=== PATIENT | female | born 1980 ===

== ENCOUNTER → 2019-12-11 15:10 | Outpatient (BNVA) | payer OTHER, SELFPAY | PROVIDERS: PCP Internal Medicine; Visit Provider Anesthesiology | DX: M46.90 Unspecified inflammatory spondylopathy, site unspecified (principal); M47.816 Spondylosis without myelopathy or radiculopathy, lumbar region; G89.4 Chronic pain syndrome; Z79.891 Long term (current) use of opiate analgesic | CPT/HCPCS: 99214 ==

== ENCOUNTER 2019-12-12 20:03 | Emergency (ER) | payer OTHER, SELFPAY ==
[2019-12-12 20:41] VITALS: BP 125/86; PULSE 84; RESP 16; TEMP 36.4; O2SAT 100; BMI 31.8
--- NOTE | 2019-12-12 20:41 | XR_ITS ---
EXAMINATION: XR KNEE, LEFT CLINICAL INFORMATION: Left knee pain COMPARISON: None TECHNIQUE: Four views of the left knee. FINDINGS: The tricompartment joint space is maintained. No bony erosive changes seen. No visible acute fracture or dislocation seen. There is no suprapatellar joint effusion. XR/XR knee LT 4V IMPRESSION: Unremarkable left knee exam.
--- NOTE | 2019-12-12 21:23 | ED_ITS ---
HPI - Extremity Injury (Lower) General Chief Complaint: Extremity Injury, Lower Stated Complaint: KNEE PAIN Time Seen by Provider: 12/12/19 20:41 Source: patient Mode of arrival: ambulatory Limitations: no limitations History of Present Illness HPI Narrative: left knee pain past 2 days unsure if she injured or not but has a aching/burning like pain in the knee. Exacerbating factors: nothing Context: direct blow Related Data Home Medications Medication Instructions Recorded Confirmed atorvastatin 40 mg tablet 40 mg PO DAILY 12/11/19 12/11/19 fenofibrate 54 mg tablet 54 mg PO DAILY 12/11/19 12/11/19 ferrous sulfate 325 mg (65 mg 325 mg PO DAILY 12/11/19 12/11/19 iron) tablet hydromorphone 2 mg tablet 2 mg PO BID PRN 12/11/19 12/11/19 ibuprofen 800 mg tablet 800 mg PO TID 12/11/19 12/11/19 Previous Rx's Medication Instructions Recorded prednisone 20 mg tablet 20 mg PO DAILY 9 Days #18 tab 12/12/19 Allergies Allergy/AdvReac Type Severity Reaction Status Date / Time No Known Allergies Allergy Unverified 11/06/19 16:37 Review of Systems Review of Systems: Constitutional: No Weight loss, No Fever, No Chills, No Night Sweats, No Fatigue, No Malaise ENT/Mouth: No Hearing loss, No Ear Pain, No Nasal Congestion, No Sinus Pain, No Hoarseness, No sore throat, No Rhinorrhea, No Swallowing Difficulty Eyes: No Eye Pain, No Swelling, No Redness, No Foreign Body, No Discharge, No Vision Changes Cardiovascular: No Chest Pain, No SOB, No Dyspnea on Exertion, No Orthopnea, No Edema, No Palpitations Respiratory: No Cough, No Sputum, No Wheezing, No Smoke Exposure Genitourinary: no irregular bleeding Musculoskeletal: As noted Skin: No Skin Lesions, No rash Neuro: No Weakness, No Numbness, No Paresthesias, No Loss of Consciousness, No Dizziness, No Headache Psych: No Anxiety/Panic Heme/Lymph: No Bruising, No Bleeding,No Lymphadenopathy Endocrine: No Polyuria, No Polydipsia, No Temperature Intolerance Yes all other systems are reviewed and are negative [facility] Past Medical History Attestation statement: The following information was validated with the patient. 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 Spondylosis without myelopathy or radiculopathy, lumbar region Unspecified inflammatory spondylopathy, site unspecified Social History Social History Smoking Status: Never smoker Physical Exam Vital Signs: Vital Signs: Vital Signs Temp Pulse Resp BP Pulse Ox 12/12/19 20:41 97.6 F 84 16 125/86 100 Body Mass Index 31.8 Reviewed Const: General: cooperative and healthy appearing; No acute distress or intoxicated appearing Nutritional Appearance: average body habitus Orientation/consciousness: patient oriented x3 Chest: Chest palpation & inspection: normal inspection of the chest Resp: Effort & Inspection: normal respiratory effort Cardio: Jugular venous distension: no JVD : General: Yes no CVA tenderness Back/Spine/Pelvis: Back: no CVA tenderness Skin: General skin exam: no rashes or lesions noted Neuro: General: patient oriented x3 Extrem: Other: Negative Homans. No obvious erythema/swelling. No effusion. Squeeze test within normal limits. Negative drawer test. General: Yes normal to inspection MDM - Extremity Injury (Lower) Imaging Data Knee xray: Radiologist's impression: Rosanne Morrell 39 F 1980 [place] [address] XRay Report Signed Patient: Rosanne Morrell MMR#: [id number] : 1980Acct:[id number] Age/Sex: 39 / FADM Date: 12/12/19 Loc: HO.ED Attending Dr: Ordering Physician: Ralph Adan NP Date of Service: 12/12/19 Procedure(s): XR knee LT 4V Accession Number(s): [id number] cc: Ralph Adan NP~ EXAMINATION: XR KNEE, LEFT CLINICAL INFORMATION: Left knee pain COMPARISON: None TECHNIQUE: Four views of the left knee. FINDINGS: The tricompartment joint space is maintained. No bony erosive changes seen. No visible acute fracture or dislocation seen. There is no suprapatellar joint effusion. XR/XR knee LT 4V IMPRESSION: Unremarkable left knee exam. 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[place] [facility] [place] Discharge Clinical Impression: Acute knee pain Patient Disposition: Home, Self-Care Instructions: Knee Pain (ED), Arthralgia (ED) Prescriptions: No Action prednisone 20 mg tablet 20 mg PO DAILY 9 Days Qty: 18 RF: 0 hydromorphone 2 mg tablet 2 mg PO BID PRNRF: 0 ferrous sulfate 325 mg (65 mg iron) tablet 325 mg PO DAILY RF: 0 ibuprofen 800 mg tablet 800 mg PO TID RF: 0 atorvastatin 40 mg tablet 40 mg PO DAILY RF: 0 fenofibrate 54 mg tablet 54 mg PO DAILY RF: 0 Referrals: Jahaira Pitt MD [Physician] - 2 weeks Interventions: ED Discharge Assessment Last Done: 12/12/19 21:37 Discharge Date/Time: 12/12/19 21:41
== END 2019-12-12 21:41 | disposition home or self-care (01) ==
PROVIDERS: Emergency Provider Emergency Medicine; PCP Internal Medicine
DX: M25.562 Pain in left knee (principal); G89.4 Chronic pain syndrome; Z79.891 Long term (current) use of opiate analgesic
CPT/HCPCS: 73564; 99283

== ENCOUNTER → 2019-12-19 11:02 | Outpatient (BNVA) | payer OTHER, SELFPAY | PROVIDERS: PCP Internal Medicine; Referring Provider Internal Medicine; Visit Provider Physician Assistant | DX: M17.12 Unilateral primary osteoarthritis, left knee (principal) | CPT/HCPCS: 99212 ==

== ENCOUNTER → 2020-01-01 10:53 | Outpatient (BNVA) | payer OTHER, SELFPAY | PROVIDERS: PCP Internal Medicine; Visit Provider Anesthesiology | DX: G89.4 Chronic pain syndrome (principal); M46.90 Unspecified inflammatory spondylopathy, site unspecified; M47.816 Spondylosis without myelopathy or radiculopathy, lumbar region; Z79.891 Long term (current) use of opiate analgesic | CPT/HCPCS: 99212 ==

== ENCOUNTER → 2020-01-22 10:26 | Outpatient (BNVA) | payer OTHER, SELFPAY | PROVIDERS: PCP Internal Medicine; Referring Provider Internal Medicine; Visit Provider Anesthesiology | DX: M46.90 Unspecified inflammatory spondylopathy, site unspecified (principal); M48.16 Ankylosing hyperostosis [Forestier], lumbar region; G89.4 Chronic pain syndrome; Z79.891 Long term (current) use of opiate analgesic | CPT/HCPCS: 99212 ==

== ENCOUNTER 2020-02-06 12:46 | Day surgery (SDC) | payer OTHER, SELFPAY ==
[2020-01-30 20:50] VITALS: BMI 70.2
--- NOTE | 2020-02-05 10:15 | P.CONAN_ITS ---
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 Spondylosis without myelopathy or radiculopathy, lumbar region Unspecified inflammatory spondylopathy, site unspecified Family History Family History Father Diabetes Hypertension Stroke Mother Hypertension Surgical History Surgical History History of ankle surgery History of cholecystectomy History of sinus surgery History of tubal ligation Social History Social History Alcohol intake: never Smoking Status: Never smoker Use of substances other than those prescribed or required for medical reasons: No Advance Directives: No Advance Directives Information Provided: No Advance Directives on File: No Meds Allergies Allergy/AdvReac Type Severity Reaction Status Date / Time No Known Allergies Allergy Verified 02/03/20 07:21 Home Medications Medication Instructions Recorded Confirmed Type atorvastatin 40 mg tablet 40 mg PO DAILY 12/11/19 01/30/20 History fenofibrate 54 mg tablet 54 mg PO DAILY 12/11/19 01/30/20 History ferrous sulfate 325 mg (65 mg 325 mg PO DAILY 12/11/19 01/30/20 History iron) tablet ibuprofen 800 mg tablet 800 mg PO TID PRN 12/11/19 01/30/20 History Exam Exam Date and Time: February 05, 2020 1015 Height,Weight and Vital Signs: Height 5 ft 3 in Weight 180 kg Assessment and Plan Assessment Anesthesia Assessment: Chart Reviewed Documented by User: Lionel Toledo 02/06/20 13:34 PMFSH Past Medical History Medical History Arthritis Chronic pain syndrome Hypercholesteremia [facility] (current) use of opiate analgesic Spondylosis without myelopathy or radiculopathy, lumbar region Unspecified inflammatory spondylopathy, site unspecified Family History Family History Father Diabetes Hypertension Stroke Mother Hypertension Surgical History Surgical History History of ankle surgery History of cholecystectomy History of sinus surgery History of tubal ligation Social History Social History Alcohol intake: never Smoking Status: Never smoker Use of substances other than those prescribed or required for medical reasons: No Advance Directives: No Advance Directives Information Provided: No Advance Directives on File: No Meds Allergies Allergy/AdvReac Type Severity Reaction Status Date / Time No Known Allergies Allergy Verified 02/03/20 07:21 Home Medications Medication Instructions Recorded Confirmed Type atorvastatin 40 mg tablet 40 mg PO DAILY 12/11/19 01/30/20 History fenofibrate 54 mg tablet 54 mg PO DAILY 12/11/19 01/30/20 History ferrous sulfate 325 mg (65 mg 325 mg PO DAILY 12/11/19 01/30/20 History iron) tablet ibuprofen 800 mg tablet 800 mg PO TID PRN 12/11/19 01/30/20 History Exam Airway Mallampati Class: II TM Dist: >3cm Neck ROM: Full
--- NOTE | 2020-02-06 07:22 | MHC.SHP ---
Pre-Procedural Eval Section A The patient is an INPATIENT: No The History & Physical has been completed within 30 days and I have reviewed it.: No Section B Chief Complaint: bilateral L3,L4,L5 medial branch block Details of Present Illness: low back pain Relevant Family History (Specify if Yes): No Relevant Social History: None Present Medications: None Medical History: Significant History History of Previous Operations: No relevant previous surgery Allergies: Allergies Allergy/AdvReac Type Severity Reaction Status Date / Time No Known Allergies Allergy Verified 02/03/20 07:21 Review of Systems Sugical H&P ROS: Negative: Cardiovascular, Respiratory, Neurological, Psychiatric, Hem-Onc, Allergic/Immunologic, Gastrointestinal, Genitourinary, Musculoskeletal, Integumentary, Endocrine and Eyes/Ears/Nose/Throat and Yes, Specify: Constitution (obesity) Exam Surgical H&P Exam: Normal: HEENT, Normal: Heart, Normal: Lungs, Normal: Extremities, Normal: Abdomen, Normal: Skin and Normal: Neurological Plan Diagnosis/Plan: Unchanged I have reviewed the history and physical and performed a pertinent physical examination on my patient. No changes have occurred unless specified.
[2020-02-06 13:00] VITALS: BMI 31.8
[2020-02-06 13:02] VITALS: BP 119/83; PULSE 80; RESP 16; TEMP 36.7; O2SAT 100
[2020-02-06] MEDS: Lactated Ringers 1,000 ML 100 ML IVCONT (13:13)
--- NOTE | 2020-02-06 13:54 | PM.OP ---
Brief Operative Note Date of Service: 02/06/20 Pre-op diagnosis: spondylosis lumbar without myelo- or radiculopathy Post-op diagnosis: same Procedure: b/l therapeutic MBBs L3- L4- L5 Surgeon: Lee Scott MD Anesthesia: MAC Estimated blood loss (mL): 1 Pathology: none sent Condition: stable Disposition: PACU
--- NOTE | 2020-02-06 13:57 | FL_ITS ---
EXAMINATION: XR FLUOROSCOPY WITH IMAGES CLINICAL INFORMATION: Bilateral medial branch block L3, L4-L5. COMPARISON: None. TECHNIQUE: Fluoroscopy performed by Dr. Lee Scott. Fluoroscopy time: 0.8 minutes DAP: 10.7 mGycm2 Images: 8 FINDINGS: Several AP images of the lumbar spine were obtained with needle positioned adjacent to bilateral L3, L4, L5 and S1 pedicles with contrast opacification or medial branch block. Visualized bones of the disc heights are normal. FL/FL guidance in OR IMPRESSION: Fluoroscopy provided for medial branch block to Dr. Scott.
--- NOTE | 2020-02-06 13:57 | P.OP_ITS ---
Operative Note Operative Note Date of Service: 02/06/20 Narrative: Informed consent was explained to the patient. All questions were explained and answered. The patient was taken inside the operating room where she was positioned prone on the operating table. ASA monitors were applied and the patient was sedated. The patient was taken inside of the operating room where she was positioned prone operating table. Time-out was performed delineating correct site, side, the nature of the pr ocedure, patient's allergy, preoperative antibiotic if needed. All operating room staff was participating in OR time-out procedure. The lower back was prepped with ChloraPrep and draped with sterile towels. Sterilely draped C-arm was brought over the operating field and sq picture ofL3, L4-and L5 vertebra and S1 AREA were delineated on the screen. Point of interest were delineated as connection of superior articular process of L3, L4 and L5 vertebra bilaterally with corresponding transverse processes, as well as connection of the sacral alae bilaterally with superior articular process of S1. The projection of the point of interest to the skin were injected with the small amount of local anesthetic lidocaine 2% 1-1.5 cc. After that 22 gauge QP spinal needles were driven to the point of interest in tunnel vision fashion. After needles gently contacted the bone at the point of interests the needle was injected with small amount of bupivacaine 0.5%-1cc mixad with kenalog. Total dose of kenalog was 80 mg.. Upon completion of the injections needles were removed and sterile dressings were applied; patient was awaken and taken outside of the operating room to recovery room where she recovered uneventfully. She went home without immediate complications.
[2020-02-06 14:37] VITALS: BP 111/79; PULSE 90; RESP 15; TEMP 37.3; O2SAT 100
[2020-02-06 14:52] VITALS: BP 106/75; PULSE 78; RESP 16; O2SAT 100
[2020-02-06 15:05] VITALS: BP 111/77; PULSE 79; RESP 18; TEMP 36.8; O2SAT 98
--- NOTE | 2020-02-06 16:07 | HO.POSTANES ---
Post Anesthesia Evaluation Post Anesthesia Evaluation Vital Signs: Vital Signs Temp Pulse Resp BP Pulse Ox 02/06/20 15:05 98.3 F 79 18 111/77 98 02/06/20 14:52 78 16 106/75 100 02/06/20 14:37 99.2 F 90 15 111/79 100 02/06/20 13:02 98.0 F 80 16 119/83 100 Anesthesia: Monitored Mental Status: Awake Pain Control: Satisfactory Nausea/Vomiting: None Hydration: Adequate Anesthesia-Related Issues: No Anes. Related Issues
== END 2020-02-06 15:20 | disposition home or self-care (01) ==
PROVIDERS: PCP Internal Medicine; Visit Provider Anesthesiology
PROC: (CPT 64493; principal; 2020-02-06 14:30)
DX: M47.816 Spondylosis without myelopathy or radiculopathy, lumbar region (principal); G89.4 Chronic pain syndrome; M46.90 Unspecified inflammatory spondylopathy, site unspecified; Z79.891 Long term (current) use of opiate analgesic; Z79.899 Other long term (current) drug therapy
CPT/HCPCS: 64493; 64494 ×2; J2250; J3010; J3300; Q9967

== ENCOUNTER 2020-02-09 | Outpatient (REF) | payer OTHER, SELFPAY ==
[2020-02-09 07:20] LABS: MANUAL DIFF FLAG NO
[2020-02-09 07:22] LABS: Basophils Percent Auto 0.3 % (0-2); Eosinophils Percent Auto 0.1 % (0-4); Hematocrit 43.2 % (37-47); Hemoglobin 14.5 g/dl (12.0-16.0); Imm Gran Pct Auto 0.8 % (0.0-0.4); Lymphocytes Percent Auto 15.3 % (20-40); Mean Corpuscular HGB Conc 33.6 g/dl (31.0-35.0); Mean Corpuscular Hemoglobin 28.5 pg (27.0-33.0); Mean Corpuscular Volume 84.9 fL (80-98); Mean Platelet Volume 9.2 fL (9.4-12.3); Monocytes Absolute Auto 0.8 X10*3/uL (0.1-1.2); Neutrophils Percent Auto 77.5 % (45-73); Platelet Count 382 X10*3/uL (160-400); Red Blood Count 5.09 X10*6/uL (4.20-5.50); Red Cell Distribution Width 12.6 % (11.0-16.0); White Blood Count 12.9 X10*3/uL (4.8-10.8)
[2020-02-09 07:55] LABS: Vitamin D 25-OH Total 22.6 ng/mL (>30)
[2020-02-09 07:59] LABS: Alanine Aminotransferase 16 U/L (0-31); Albumin Level 4.5 g/dL (3.5-5.0); Alkaline Phosphatase 72 U/L (39-117); Anion Gap 12 (12-20); Aspartate Amino Transferase 12 U/L (5-31); Bilirubin Total 0.3 mg/dL (0.0-1.0); Blood Urea Nitrogen 8 mg/dL (9-16); Calcium 9.2 mg/dL (8.4-10.2); Carbon Dioxide 25 mmol/L (22-29); Chloride 106 mmol/L (96-108); Cholesterol 211 mg/dL; Estimated Glomerular Filt Rate > 60; Glucose Fasting 96 mg/dL (60-99); HDL Cholesterol 48 mg/dL; Iron 48 mcg/dL (30-160); LDL Cholesterol Calculated 136 mg/dl; Percent Iron Saturation 12 % (15-50); Potassium 4.1 mmol/l (3.3-5.1); Sodium 139 mmol/L (135-145); Total Iron Binding Capacity 415 mcg/dL (228-428); Total Protein 7.9 g/dL (6.5-8.0); Triglycerides 139 mg/dL; Unsaturated Iron Binding 367 ug/dL
== END 2020-02-09 00:01 ==
LOC: HO.LAB
PROVIDERS: PCP Internal Medicine; Visit Provider Internal Medicine
DX: E78.2 Mixed hyperlipidemia (principal); D50.0 Iron deficiency anemia secondary to blood loss (chronic); E55.9 Vitamin D deficiency, unspecified
CPT/HCPCS: 36415; 80053; 80061; 82306; 83540; 85025

== ENCOUNTER → 2020-02-25 15:24 | Outpatient (BNVA) | payer OTHER, SELFPAY | PROVIDERS: PCP Internal Medicine; Visit Provider Anesthesiology | DX: M46.90 Unspecified inflammatory spondylopathy, site unspecified (principal); M47.816 Spondylosis without myelopathy or radiculopathy, lumbar region; G89.4 Chronic pain syndrome; Z79.891 Long term (current) use of opiate analgesic | CPT/HCPCS: 99212 ==

== ENCOUNTER → 2020-03-08 11:54 | Outpatient (BNVA) | payer OTHER, SELFPAY | PROVIDERS: PCP Internal Medicine; Referring Provider Internal Medicine; Visit Provider Anesthesiology ==

== ENCOUNTER → 2020-04-12 13:25 | Outpatient (BNVA) | payer OTHER, SELFPAY | PROVIDERS: PCP Internal Medicine; Visit Provider Anesthesiology | DX: M46.90 Unspecified inflammatory spondylopathy, site unspecified (principal); M47.816 Spondylosis without myelopathy or radiculopathy, lumbar region; G89.4 Chronic pain syndrome; Z79.891 Long term (current) use of opiate analgesic | CPT/HCPCS: 99212 ==

== ENCOUNTER 2020-04-27 09:38 | Outpatient (REF) | payer OTHER, SELFPAY ==
--- NOTE | ~2020-04-27 | MM_ITS ---
EXAMINATION: MM SCREENING DIGITAL BREAST TOMOSYNTHESIS, BILATERAL CLINICAL INFORMATION: Screening. Asymptomatic. The lifetime risk of breast cancer based on the Tyrer-Cuzick Model is 8.0%. COMPARISON: Mammography: April 22, 2019 TECHNIQUE: Digital breast tomosynthesis is performed in both the craniocaudal and mediolateral oblique views along with computer-aided detection (CAD). Synthesized 2D images are generated from the tomosynthesis. FINDINGS: The breasts are heterogeneously dense, which may obscure small masses (ACR BI-RADS breast composition Category c). There are no significant masses, abnormal calcifications, or other abnormalities. MM/MM tomosynthesis screening BI IMPRESSION: There are no significant changes from prior study. ASSESSMENT: BI-RADS 1: Negative RECOMMENDATION: Routine annual mammography screening. This patient's information was entered into a reminder system with a target due date for their next mammogram.
== END 2020-04-27 09:39 | disposition home or self-care (01) ==
LOC: HO.MAMMO 09:38
PROVIDERS: PCP Internal Medicine; Visit Provider Internal Medicine
DX: Z12.31 Encounter for screening mammogram for malignant neoplasm of breast (principal)
CPT/HCPCS: 77063; 77067

== ENCOUNTER 2020-05-17 06:07 | Outpatient (REF) | payer OTHER, SELFPAY ==
[2020-05-17 08:13] LABS: MANUAL DIFF FLAG NO
[2020-05-17 08:23] LABS: Basophils Absolute Auto 0.1 X10*3/uL (0.0-0.2); Basophils Percent Auto 0.6 % (0-2); Eosinophils Absolute Auto 0.6 X10*3/uL (0.0-0.4); Eosinophils Percent Auto 8.2 % (0-4); Hematocrit 40.5 % (37-47); Hemoglobin 13.7 g/dl (12.0-16.0); Imm Gran Abs Auto 0.04 X10*3/uL (0.00-0.03); Imm Gran Pct Auto 0.5 % (0.0-0.4); Lymphocytes Absolute Auto 2.1 X10*3/uL (1.2-4.9); Lymphocytes Percent Auto 27.1 % (20-40); Mean Corpuscular HGB Conc 33.8 g/dl (31.0-35.0); Mean Corpuscular Volume 85.6 fL (80-98); Mean Platelet Volume 9.1 fL (9.4-12.3); Monocytes Absolute Auto 0.4 X10*3/uL (0.1-1.2); Monocytes Percent Auto 5.6 % (2-11); Neutrophils Absolute Auto 4.5 X10*3/uL (2.0-8.3); Platelet Count 314 X10*3/uL (160-400); Red Blood Count 4.73 X10*6/uL (4.20-5.50); Red Cell Distribution Width 12.6 % (11.0-16.0); White Blood Count 7.7 X10*3/uL (4.8-10.8)
[2020-05-17 08:31] LABS: Alanine Aminotransferase 22 U/L (0-31); Albumin Level 4.1 g/dL (3.5-5.0); Alkaline Phosphatase 80 U/L (39-117); Anion Gap 15 (12-20); Aspartate Amino Transferase 16 U/L (5-31); Bilirubin Total 0.5 mg/dL (0.0-1.0); Blood Urea Nitrogen 8 mg/dL (9-16); Calcium 8.5 mg/dL (8.4-10.2); Carbon Dioxide 22 mmol/L (22-29); Chloride 106 mmol/L (96-108); Cholesterol 199 mg/dL; Estimated Glomerular Filt Rate > 60; Glucose Fasting 80 mg/dL (60-99); HDL Cholesterol 38 mg/dL; Iron 59 mcg/dL (30-160); LDL Cholesterol Calculated 111 mg/dl; Percent Iron Saturation 16 % (15-50); Potassium 4.2 mmol/L (3.3-5.1); Sodium 139 mmol/L (135-145); Total Iron Binding Capacity 378 mcg/dL (228-428); Total Protein 7.2 g/dL (6.5-8.0); Triglycerides 252 mg/dL; Unsaturated Iron Binding 319 ug/dL
== END 2020-05-17 06:08 | disposition home or self-care (01) ==
LOC: HO.LAB 06:07
PROVIDERS: PCP Internal Medicine; Visit Provider Internal Medicine
DX: D50.0 Iron deficiency anemia secondary to blood loss (chronic) (principal); E78.2 Mixed hyperlipidemia; E78.5 Hyperlipidemia, unspecified
CPT/HCPCS: 36415; 80053; 80061; 83540; 85025

== ENCOUNTER 2021-05-17 06:02 | Outpatient (REF) | payer OTHER, SELFPAY ==
[2021-05-17 07:27] LABS: Hematocrit 42.9 % (37.0-47.0); Mean Corpuscular HGB Conc 32.6 g/dl (31.0-35.0); Mean Corpuscular Hemoglobin 27.8 pg (27.0-33.0); Mean Corpuscular Volume 85.1 fL (80.0-98.0); Mean Platelet Volume 8.8 fL (9.4-12.3); Platelet Count 345 X10*3/uL (160-400); Red Blood Count 5.04 X10*6/uL (4.20-5.50); Red Cell Distribution Width 12.9 % (11.0-16.0)
[2021-05-17 07:50] LABS: Alanine Aminotransferase 41 U/L (0-31); Albumin Level 4.2 g/dL (3.5-5.0); Alkaline Phosphatase 78 U/L (39-117); Anion Gap 10 (12-20); Aspartate Amino Transferase 24 U/L (5-31); Bilirubin Total 0.5 mg/dL (0.0-1.0); Blood Urea Nitrogen 9 mg/dL (9-16); Calcium 9.3 mg/dL (8.4-10.2); Carbon Dioxide 26 mmol/L (22-29); Chloride 106 mmol/L (96-108); Estimated Glomerular Filt Rate > 60; Glucose Random 82 mg/dL (60-115); Potassium 4.4 mmol/L (3.3-5.1); Sodium 138 mmol/L (135-145); Total Protein 7.6 g/dL (6.5-8.0)
[2021-05-17 08:10] LABS: Vitamin D 25-OH Total 17.6 ng/mL (>30)
[2021-05-17 08:22] LABS: Folate 12.3 ng/mL (> or = 4.0); Vitamin B12 305 pg/mL (200-900)
== END 2021-05-17 06:03 | disposition home or self-care (01) ==
LOC: HO.LAB 06:02
PROVIDERS: PCP Internal Medicine; Visit Provider Nurse Practitioner Family
DX: F32.A Depression, unspecified (principal); F41.9 Anxiety disorder, unspecified; E78.2 Mixed hyperlipidemia; E78.5 Hyperlipidemia, unspecified; D50.0 Iron deficiency anemia secondary to blood loss (chronic); R79.89 Other specified abnormal findings of blood chemistry
CPT/HCPCS: 36415; 80053; 82306; 82607; 82746; 84443; 85027

== ENCOUNTER 2021-05-20 10:25 | Outpatient (REF) | payer OTHER, SELFPAY ==
[2021-05-20 11:47] LABS: HBc Num1 0.07 S/CO (0.00-0.79); HBsAGNum1 0.21 S/CO (0.00-0.99); Hepatitis A Antibody IgM 0.19 Index (0-0.79); Hepatitis B Core Antibody Nonreactive (Nonreactive); Hepatitis B Surface Antigen Negative (Negative); ~Hepatitis A Antibody IgM Nonreactive (Nonreactive)
[2021-05-20 11:53] LABS: HBS Num1 34.85 mIU/mL (0-7.99); ~HepC Num1 0.11 S/CO (0.00-0.79); ~Hepatitis B Surface Antibody REACTIVE (Nonreactive); ~Hepatitis C Antibody Nonreactive (Nonreactive)
== END 2021-05-20 10:26 | disposition home or self-care (01) ==
LOC: HO.LAB 10:25
PROVIDERS: PCP Internal Medicine; Visit Provider Nurse Practitioner Family
DX: R94.5 Abnormal results of liver function studies (principal)
CPT/HCPCS: 36415; 86704; 86706; 86709; 86803; 87340

== ENCOUNTER 2021-06-29 08:49 | Outpatient (REF) | payer OTHER, SELFPAY ==
--- NOTE | ~2021-06-29 | US_ITS ---
EXAMINATION: US ABDOMEN COMPLETE CLINICAL INFORMATION: Other specified abnormal findings of blood chemistry. COMPARISON: None TECHNIQUE: Real-time imaging of the abdominal viscera. FINDINGS: PANCREAS: Normal. ABDOMINAL AORTA: The proximal, mid, and distal segments are normal in caliber. INFERIOR VENA CAVA: Visualized portions are normal. LIVER: The liver is normal in size. The liver contour is normal. Increased echogenicity of the liver parenchyma, this can be seen in the setting of hepatic steatosis or liver parenchymal disease. No focal hepatic lesion. There is no intrahepatic biliary duct dilatation seen. GALLBLADDER: Surgically absent. COMMON BILE DUCT: Normal in caliber measuring 0.3 cm in diameter. RIGHT KIDNEY: Normal. No hydronephrosis. No renal calculi or focal parenchymal lesions. The kidney measures 10.9 cm in maximum dimension. LEFT KIDNEY: Normal. No hydronephrosis. No renal calculi or focal parenchymal lesions. The kidney measures 10.3 cm in maximum dimension. SPLEEN: Normal. The spleen measures 9.1 cm in maximum dimension. FREE FLUID: None. US/US abdomen complete IMPRESSION: Increased echogenicity of the liver parenchyma, this can be seen in the setting of hepatic steatosis or liver parenchymal disease.
== END 2021-06-29 08:50 | disposition home or self-care (01) ==
LOC: HO.HMGCX 08:49
PROVIDERS: PCP Internal Medicine; Visit Provider Nurse Practitioner Family
DX: R79.89 Other specified abnormal findings of blood chemistry (principal)
CPT/HCPCS: 76700

== ENCOUNTER 2021-12-05 05:58 | Outpatient (REF) | payer OTHER, SELFPAY ==
[2021-12-05 06:15] LABS: MANUAL DIFF FLAG NO
[2021-12-05 07:32] LABS: Basophils Absolute Auto 0.1 X10*3/uL (0.0-0.2); Basophils Percent Auto 0.5 % (0-2); Eosinophils Percent Auto 8.3 % (0-4); Hematocrit 42.1 % (37.0-47.0); Hemoglobin 14.1 g/dl (12.0-16.0); Imm Gran Abs Auto 0.07 X10*3/uL (0.00-0.03); Imm Gran Pct Auto 0.6 % (0.0-0.4); Lymphocytes Absolute Auto 2.7 X10*3/uL (1.2-4.9); Lymphocytes Percent Auto 22.8 % (20-40); Mean Corpuscular HGB Conc 33.5 g/dl (31.0-35.0); Mean Corpuscular Volume 83.7 fL (80.0-98.0); Mean Platelet Volume 8.9 fL (9.4-12.3); Monocytes Absolute Auto 0.7 X10*3/uL (0.1-1.2); Monocytes Percent Auto 6.1 % (2-11); Neutrophils Absolute Auto 7.3 x10*3/uL (2.0-8.3); Neutrophils Percent Auto 61.7 % (45-73); Platelet Count 362 X10*3/uL (160-400); Red Blood Count 5.03 X10*6/uL (4.20-5.50); Red Cell Distribution Width 12.6 % (11.0-16.0); White Blood Count 11.9 X10*3/uL (4.8-10.8)
[2021-12-05 07:57] LABS: Alanine Aminotransferase 25 U/L (0-31); Albumin Level 4.3 g/dL (3.5-5.0); Alkaline Phosphatase 81 U/L (39-117); Anion Gap 16 (12-20); Aspartate Amino Transferase 17 U/L (5-31); Bilirubin Total 0.6 mg/dL (0.0-1.0); Blood Urea Nitrogen 8 mg/dL (9-16); Calcium 9.5 mg/dL (8.4-10.2); Carbon Dioxide 24 mmol/L (22-29); Chloride 103 mmol/L (96-108); Cholesterol 243 mg/dL; Estimated Glomerular Filt Rate > 60; Glucose Fasting 84 mg/dL (60-99); HDL Cholesterol 36 mg/dL; Iron 68 mcg/dL (30-160); LDL Cholesterol Calculated 132 mg/dl; Percent Iron Saturation 17 % (15-50); Potassium 4.4 mmol/L (3.3-5.1); Sodium 139 mmol/L (135-145); Total Iron Binding Capacity 411 mcg/dL (228-428); Total Protein 7.7 g/dL (6.5-8.0); Triglycerides 378 mg/dL; Unsaturated Iron Binding 343 ug/dL
[2021-12-05 08:20] LABS: Vitamin D 25-OH Total 20.7 ng/mL (>30)
== END 2021-12-05 05:59 | disposition home or self-care (01) ==
LOC: HO.LAB 05:58
PROVIDERS: PCP Internal Medicine; Visit Provider Internal Medicine
DX: E78.5 Hyperlipidemia, unspecified (principal); E55.9 Vitamin D deficiency, unspecified; D64.9 Anemia, unspecified; E78.2 Mixed hyperlipidemia
CPT/HCPCS: 36415; 80053; 80061; 82306; 83540; 85025

== ENCOUNTER 2022-02-06 10:20 | Outpatient (REF) | payer OTHER, SELFPAY ==
[2022-02-06 14:19] LABS: CT PCR NOT DETECTED (Not Detect.); NG PCR NOT DETECTED (Not Detect.)
[2022-02-07 09:15] LABS: BV Int Neg Control Negative (Negative); BV Int Pos Control Positive (Positive)
[2022-02-08 01:34] LABS: HPV mRNA E6/E7 rflx Not Detected (Not Detected)
== END 2022-02-06 10:21 | disposition home or self-care (01) ==
LOC: HO.LNP 10:20
PROVIDERS: Visit Provider Advanced Practice Midwife
DX: Z12.4 Encounter for screening for malignant neoplasm of cervix (principal); Z11.51 Encounter for screening for human papillomavirus (HPV); Z11.3 Encounter for screening for infections with a predominantly sexual mode of transmission; R35.0 Frequency of micturition; N92.0 Excessive and frequent menstruation with regular cycle; Z87.42 Personal history of other diseases of the female genital tract
CPT/HCPCS: 87480; 87491; 87510; 87591; 87624; 87660; 88142; 99202

== ENCOUNTER 2022-05-31 08:59 | Outpatient (REF) | payer OTHER, SELFPAY ==
--- NOTE | ~2022-05-31 | MM_ITS ---
EXAMINATION: MM SCREENING DIGITAL BREAST TOMOSYNTHESIS, BILATERAL CLINICAL INFORMATION: Screening. Asymptomatic. The lifetime risk of breast cancer based on the Tyrer-Cuzick Model is 8%. COMPARISON: Mammography: 06/27/2020, 04/22/2019 (baseline) TECHNIQUE: Digital breast tomosynthesis is performed in both the craniocaudal and mediolateral oblique views along with computer-aided detection (CAD). Synthesized 2D images are generated from the tomosynthesis. FINDINGS: The breasts are heterogeneously dense, which may obscure small masses (ACR BI-RADS breast composition Category c). Right synthesized MLO view has small round asymmetry 6 cm from nipple along the posterior nipple line. Suspect summation artifact or incompletely compressed glandular tissue. Patient will be recalled for additional imaging to confirm. The remainder of the bilateral breasts show no significant changes from prior studies. There is no architectural abnormality. No abnormal calcifications. The axilla and skin contours are unremarkable. MM/MM tomosynthesis screening BI IMPRESSION: Right: -Asymmetric density mid right breast on synthesized MLO view, likely summation artifact or incompletely compressed glandular tissue. Left: -No mammographic evidence of malignancy. ASSESSMENT: BI-RADS 0: Incomplete - Need Additional Imaging Evaluation RECOMMENDATION: 1. Additional views right breast (spot MLO, standard ML). 2. Targeted ultrasound if warranted after review of the additional views. 3. Radiology department staff will contact the patient for additional imaging. This patient's information was entered into a reminder system with a target due date for their next mammogram.
== END 2022-05-31 09:00 | disposition home or self-care (01) ==
LOC: HO.MAMMO 08:59
PROVIDERS: PCP Internal Medicine; Visit Provider Internal Medicine
DX: Z12.31 Encounter for screening mammogram for malignant neoplasm of breast (principal)
CPT/HCPCS: 77063; 77067

== ENCOUNTER 2022-06-08 09:19 | Outpatient (REF) | payer OTHER, SELFPAY ==
--- NOTE | ~2022-06-08 | MM_ITS ---
EXAMINATION: MM DIAGNOSTIC DIGITAL BREAST TOMOSYNTHESIS, RIGHT CLINICAL INFORMATION: Asymmetric density COMPARISON: Mammography: May 31, 2022 and studies dating back to April 22, 2019 TECHNIQUE: Digital breast tomosynthesis is performed. 2D images are generated from the tomosynthesis. The following views are obtained: Spot compression mediolateral oblique study as well as full-field 90 degree mediolateral view. FINDINGS: The breasts are heterogeneously dense, which may obscure small masses (ACR BI-RADS breast composition Category c). Additional views show no persistent significant mass, architectural abnormality, or abnormal calcifications. Results are discussed with the patient at time of visit. MM/MM tomosynthesis added views R IMPRESSION: No mammographic evidence of malignancy. ASSESSMENT: BI-RADS 1: Negative RECOMMENDATION: Routine annual mammography screening. This patient's information was entered into a reminder system with a target due date for their next mammogram.
== END 2022-06-08 09:20 | disposition home or self-care (01) ==
LOC: HO.MAMMO 09:19
PROVIDERS: Visit Provider Internal Medicine
DX: N64.89 Other specified disorders of breast (principal)
CPT/HCPCS: 77061; 77065

== ENCOUNTER 2022-06-12 06:03 | Outpatient (REF) | payer OTHER, SELFPAY ==
[2022-06-12 06:17] LABS: MANUAL DIFF FLAG NO
[2022-06-12 08:03] LABS: Basophils Absolute Auto 0.1 X10*3/uL (0.0-0.2); Basophils Percent Auto 0.6 % (0-2); Eosinophils Absolute Auto 1.2 X10*3/uL (0.0-0.4); Eosinophils Percent Auto 12.1 % (0-4); Hematocrit 44.2 % (37.0-47.0); Hemoglobin 14.7 g/dl (12.0-16.0); Imm Gran Abs Auto 0.05 X10*3/uL (0.00-0.03); Imm Gran Pct Auto 0.5 % (0.0-0.4); Lymphocytes Absolute Auto 2.7 X10*3/uL (1.2-4.9); Lymphocytes Percent Auto 27.9 % (20-40); Mean Corpuscular HGB Conc 33.3 g/dl (31.0-35.0); Mean Corpuscular Hemoglobin 27.9 pg (27.0-33.0); Mean Platelet Volume 8.8 fL (9.4-12.3); Monocytes Absolute Auto 0.7 X10*3/uL (0.1-1.2); Monocytes Percent Auto 7.1 % (2-11); Neutrophils Absolute Auto 5.1 x10*3/uL (2.0-8.3); Neutrophils Percent Auto 51.8 % (45-73); Platelet Count 358 X10*3/uL (160-400); Red Blood Count 5.26 X10*6/uL (4.20-5.50); White Blood Count 9.8 X10*3/uL (4.8-10.8)
[2022-06-12 08:48] LABS: Alanine Aminotransferase 26 U/L (0-31); Albumin Level 4.3 g/dL (3.5-5.0); Alkaline Phosphatase 70 U/L (39-117); Anion Gap 13 (12-20); Aspartate Amino Transferase 21 U/L (5-31); Bilirubin Total 0.5 mg/dL (0.0-1.0); Blood Urea Nitrogen 6 mg/dL (9-16); Calcium 9.2 mg/dL (8.4-10.2); Carbon Dioxide 27 mmol/L (22-29); Chloride 106 mmol/L (96-108); Cholesterol 224 mg/dL; Estimated Glomerular Filt Rate > 60; Glucose Fasting 79 mg/dL (60-99); HDL Cholesterol 40 mg/dL; Iron 46 mcg/dL (30-160); LDL Cholesterol Calculated 140 mg/dl; Percent Iron Saturation 13 % (15-50); Potassium 4.6 mmol/L (3.3-5.1); Sodium 141 mmol/L (135-145); Total Iron Binding Capacity 351 mcg/dL (228-428); Total Protein 7.4 g/dL (6.5-8.0); Triglycerides 221 mg/dL; Unsaturated Iron Binding 305 ug/dL
[2022-06-12 08:52] LABS: Vitamin D 25-OH Total 19.3 ng/mL (>30)
== END 2022-06-12 06:04 | disposition home or self-care (01) ==
LOC: HO.LAB 06:03
PROVIDERS: PCP Internal Medicine; Visit Provider Internal Medicine
DX: Z00.00 Encounter for general adult medical examination without abnormal findings (principal); E55.9 Vitamin D deficiency, unspecified; D64.9 Anemia, unspecified; E78.5 Hyperlipidemia, unspecified
CPT/HCPCS: 36415; 80053; 80061; 82306; 83540; 85025

== ENCOUNTER 2022-12-06 08:35 | Outpatient (AMB) | payer OTHER, SELFPAY ==
--- NOTE | 2022-12-06 09:49 | MHC.OFFWIV ---
Intake Vital Signs 12/06/22 09:51 Height 5 ft 4 in Weight 180 lb BMI 30.9 BP 124/72 Blood Pressure Location Rt brachial Position Sitting Pulse 81 Pulse Source Pulse Oximeter Temp 96.5 F L Temp Source Temporal Artery Scan Pulse Oximetry (%) 100 Oxygen Delivery Method Room Air Intake Visit Reasons: EP, headache, left ear pain [phone] Intake Note: pt is here for c/o headache and left ear pain 2 days Patient Tobacco Use Status: Never used Tobacco Allergies No Known Allergies Allergy (Verified 12/06/22 09:50) Do you need a note to return to daycare/school/sports/work: Yes HPI EP, headache, left ear pain [phone] HPI Details 42-year-old female patient presents today with a several day history of headache and left ear pain. Denies any fever or chills. 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 Chronic pain syndrome Spondylosis without myelopathy or radiculopathy, lumbar region Unspecified inflammatory spondylopathy, site unspecified Surgical History History of ankle surgery History of sinus surgery History of cholecystectomy History of tubal ligation Family History Father Diabetes Hypertension Stroke Mother Hypertension Social History Housing: House Alcohol intake: current Alcohol intake frequency: holidays/special occasions only Alcohol type: wine and hard liquor Patient Tobacco Use Status: Never used Tobacco e-Cigarette/Vaping Use: Never Used service: No Current occupational status: unemployed Current occupational exposures/hazards: No Cognitive needs: No Hearing needs: No Vision needs: No Female Reproductive History Menstrual Age of Menarche: 10 Review of Systems Const All systems reviewed & are unremarkable except as noted in HPI and below Physical Exam Vital Signs: Last Vital Signs Temp 96.5 F L 12/06/22 09:51 Pulse 81 12/06/22 09:51 BP 124/72 12/06/22 09:51 Pulse Ox 100 12/06/22 09:51 Oxygen Delivery Method Room Air 12/06/22 09:51 BMI result Body Mass Index 30.9 Const General: cooperative and no acute distress HEENT Head: Yes normal to inspection Ears: hearing grossly normal bilaterally, external ears normal, TM normal on the right and TM abnormal (Left TM erythematous, purulent effusion) General nose exam: Normal external nose present Face and sinus: Yes normal facial exam Mouth: Normal oral and palatal mucosa present and moist mucous membranes abnormal Throat: Yes posterior oropharynx normal Neck Neck: Yes lymphadenopathy (Left submandibular) Resp Effort & Inspection: normal respiratory effort Auscultation: clear to auscultation bilaterally Cardio Jugular venous distension: no JVD Palpation: normal PMI Rate: regular rate Rhythm: regular rhythm Skin General skin exam: no rashes or lesions noted Extrem General: Yes capillary refill normal and Yes no clubbing, cyanosis or edema Psych Appearance: grossly normal Mental Status: mental status grossly normal Speech and movement: Normal speech and movement present Assessment & Plan Assessment & Plan (1) Left otitis media with effusion: Code(s): H65.92 - Unspecified nonsuppurative otitis media, left ear Plan: Augmentin 10 days for left otitis media. Reviewed indications, use, possible side effects of medication. Advised to return to the clinic if she does not improve with treatment, or if new symptoms develop. She verbalizes understanding and agrees to plan. Medications: New amoxicillin-pot clavulanate 875-125 mg 1 tab PO Q12H 20 tabs 0RF 10 days H65.92 - Unspecified nonsuppurative otitis media, left ear Coding Level of Care Code Est Pt Level 3 (65635) Diagnoses Left otitis media with effusion H65.92
[2022-12-06 09:51] VITALS: BP 124/72; PULSE 81; TEMP 35.8; O2SAT 100; BMI 30.9
== END 2022-12-06 10:09 | disposition home or self-care (01) ==
PROVIDERS: PCP Internal Medicine; Visit Provider Nurse Practitioner Family
DX: H65.92 Unspecified nonsuppurative otitis media, left ear (principal)
CPT/HCPCS: 99213

== ENCOUNTER 2022-12-27 09:19 | Outpatient (AMB) | payer OTHER, SELFPAY ==
[2022-12-27 09:20] VITALS: BP 128/80; PULSE 74; O2SAT 100; BMI 31.1
--- NOTE | 2022-12-27 09:20 | A.OFFPC_ITS ---
Vital Signs 12/27/22 09:20 Height 5 ft 4 in Weight 181 lb BMI 31.1 BP 128/80 Blood Pressure Location Lt brachial Position Sitting Pulse 74 Pulse Source Pulse Oximeter Pulse Oximetry (%) 100 Oxygen Delivery Method Room Air Intake Visit Reasons: Annual Exam Intake Note: Patient is here today for a physical. 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 Accompanied by: Self / Same As Patient Allergies No Known Allergies Allergy (Verified 12/27/22 09:29) Medication List - Last Reconciled 12/27/22 by Rosmery Rivas MD atorvastatin 40 mg PO DAILY azelastine intranasal cetirizine (All Day Allergy (cetirizine)) 10 mg PO DAILY PRN 90 days cholecalciferol (vitamin D3) 50 mcg PO DAILY cholestyramine (with sugar) 4 gram 4 grams PO DAILY 30 days escitalopram oxalate 10 mg PO DAILY fenofibrate 54 mg PO DAILY fluticasone propionate 50 mcg/actuation (Flonase Allergy Relief) 1 spray intranasal DAILY 30 days hydroxyzine HCl 10 mg PO BEDTIME PRN hydroxyzine pamoate 50 - 100 mg PO BEDTIME PRN ibuprofen 800 mg PO TID PRN 30 days leg brace (Knee Support Brace) genumed knee support [id number] loratadine-pseudoephedrine 5-120 mg ER (Loratadine-D) 1 tab PO Q12H pantoprazole 40 mg PO DAILY 90 days sertraline 200 mg PO QPM tramadol 50 mg PO Q6H PRN Tobacco use date assessed: 12/27/22 Dental Screening Dental Screen Date: 12/27/22 Did you have a dental visit in the last 12 months?: Yes Did you have a dental problem in the last 6 months where you did not have access to dental care?: No Was dental information given to patient?: Patient has dentist HPI HPI Comments History of Present Illness Details This is a 42-year-old female with mild recurrent major depression that comes for her physical exam. Depression stable with sertraline and she follows with counseling and psychiatry. Last mammogram was May 2022 and was normal. Last Pap smear was 2021 and was normal with HPV negative. Denies any chest pain or shortness of breath. 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 Chronic pain syndrome Spondylosis without myelopathy or radiculopathy, lumbar region Unspecified inflammatory spondylopathy, site unspecified Surgical History History of ankle surgery History of sinus surgery History of cholecystectomy History of tubal ligation Family History Father Diabetes Hypertension Stroke Mother Hypertension Social History Housing: House Alcohol intake: current Alcohol intake frequency: holidays/special occasions only Alcohol type: wine and hard liquor Patient Tobacco Use Status: Never used Tobacco e-Cigarette/Vaping Use: Never Used service: No Current occupational status: unemployed Current occupational exposures/hazards: No Cognitive needs: No Hearing needs: No Vision needs: No Female Reproductive History Menstrual Age of Menarche: 10 Questionnaire PHQ-9 Over the last 2 weeks, how often have you been bothered by any of the following problems? 1. Little interest or pleasure in doing things: not at all 2. Feeling down, depressed, or hopeless: not at all 3. Trouble falling or staying asleep, or sleeping too much: not at all 4. Feeling tired or having little energy: not at all 5. Poor appetite or overeating: not at all 6. Feeling bad about yourself - or that you are a failure or have let yourself or your family down: not at all 7. Trouble concentrating on things, such as reading the newspaper or watching television: not at all 8. Moving or speaking so slowly that other people could have noticed. Or the opposite - being so fidgety or restless that you have been moving around a lot more than usual: not at all 9. Thoughts that you would be better off or of hurting yourself in some way: not at all Total score: 0 Depression Screening Interpretation: Negative Depression Screening Done: Yes 52952 - PHQ-9 Billing: Yes Source: Developed by Drs. Tung Soriano, Debi Aguillon, Amari Rivas and colleagues, with an educational amira from [employer]. Thrive Questionnaire Date Thrive assessed: 12/27/22 I am a: Patient What is your living situation today?: I have a steady place to live Within the past 12 months, did the food you bought not last and you didn't have the money to get more?: Never true Within the past 12 months, did you worry whether your food would run out before you got money to buy more?: Never true Do you have trouble paying for medicines?: No Do you have trouble getting transportation to medical appointments?: No Do you have trouble paying your heating and electricity bill?: No Do you have trouble taking care of your child, family member or friend?: No Do you have trouble with day-to-day activities such as bathing, preparing meals, shopping, managing finances, etc.?: No Are you currently unemployed and looking for a job?: No Are you interested in more education?: No AUDIT C Alcohol Use Questionnaire (AUDIT-C) 1. How often do you have a drink containing alcohol?: Monthly or less 2. How many drinks containing alcohol do you have on a typical day when you are drinking?: 1 or 2 3. How often do you have six or more drinks on one occasion?: Never Total Score: 1 Score Reviewed/Action Taken: No GEETHA-7 AMB Questionnaire GEETHA-7 Date GEETHA - 7 assessed: 12/27/22 Feeling nervous, anxious, or on edge: 0 = Not at all Not being able to stop or control worryin = Not at all Worrying too much about different things: 0 = Not at all Trouble relaxin = Not at all Being so restless that it is hard to sit still: 0 = Not at all Becoming easily annoyed or irritable: 0 = Not at all Feeling afraid as if something awful might happen: 0 = Not at all Total GEETHA-7 score (0-4 normal; 5-9 mild; 10-14 moderate; 15-21 severe): 0 Source: Developed by Drs. Tung Soriano, Debi Aguiloln, Amari Rivas and colleagues, with an educational amira from [employer]. GEETHA-7 Assessment Billing GEETHA-7 Assessment Tool: GEETHA-7 Assessment 02846 Review of Systems Const All systems reviewed & are unremarkable except as noted in HPI and below Eyes Reports no additional complaints, Denies change in vision and Denies other visual disturbances Card Denies chest pain at rest, Denies chest pain with activity, Denies edema, Denies irregular heart rhythm, Denies claudication, Denies dyspnea, Denies dyspnea on exertion, Denies orthopnea, Denies paroxysmal nocturnal dyspnea and Denies slow heart rate Resp Denies cough, Denies dyspnea and Denies dyspnea on exertion GI Denies abdominal pain, Denies change in bowel habits, Denies excessive flatus, Denies nausea and Denies vomiting Denies urinary incontinence, Denies urinary hesitancy and Denies urinary urgency Musc Denies abnormal gait, Denies atrophy, Denies deformity and Denies limited range of motion Skin/Breast Denies bleeding lesions, Denies changing lesions and Denies rash Neuro Denies abnormal gait, Denies behavioral changes, Denies confusion and Denies lack of coordination Psych Denies behavioral changes and Denies confusion Physical exam (Primary Care) Vital Signs: Last Vital Signs Pulse 74 12/27/22 09:20 BP 128/80 12/27/22 09:20 Pulse Ox 100 12/27/22 09:20 Oxygen Delivery Method Room Air 12/27/22 09:20 BMI result Body Mass Index 31.1 Tobacco/Smoking Status: Tobacco use Status Tobacco use date assessed 12/27/22 12/27/22 09:25 Patient Tobacco Use Status Never used Tobacco 12/27/22 09:25 e-Cigarette/Vaping Use Never Used 12/27/22 09:25 PHQ-9: PHQ-9 Score PHQ-9: Total score 0 12/27/22 09:28 Depression Screening Interpretation: Negative Thrive Assessment: Date of Thrive Assessment Date Thrive assessed 12/27/22 12/27/22 09:25 Const General: No confusion Orientation/consciousness: patient oriented x3 and No confusion HENTN Head: Yes normal to inspection, Yes normocephalic and Yes atraumatic Ears: external ears normal Eyes General: appearance normal, both eyes and all related structures Eyelids: Yes eyelids normal Conjunctivae: conjunctivae normal Neck Neck: Yes normal visual inspection and Yes supple Resp Effort & Inspection: normal respiratory effort Auscultation: clear to auscultation bilaterally Cardio Jugular venous distension: no JVD Rate: regular rate Rhythm: regular rhythm Heart sounds: S1 normal heart sound present and S2 normal heart sound present GI Inspection: Yes normal to inspection Palpation (GI): Soft to palpation and nontender Auscultation: normal bowel sounds Skin General skin exam: no rashes or lesions noted Neuro General: patient oriented x3, no focal motor deficits and No confusion Extrem General: Yes full ROM Psych Appearance: grossly normal Office Procedures Flu Questionnaire Does the patient have a severe egg allergy?: No Does the patient have severe life threatening allergies?: No Does the patient have a fever or illness today?: No Has the patient ever had Guillain-[place] Syndrome?: No Has the patient ever had any past reaction to a flu shot?: No Immunizations flu vacc [id number] 6mos up(PF) 60 mcg(15 mcgx4)/0.5 mL IM syringe Performing Provider: Rosmery Rivas MD [facility] Administered by: JIMMY Kirby on 12/27/22 09:28 Dose Route Admin Location Dispensed Lot Number Expiration Date NDC Director Stage 0.5 mL IM Left Deltoid 0.5 mL [id number] 08/19/23 72663-703-17 [employer] VIS Given Date VIS Provided VIS Publication Date 12/27/22 Single Vaccine 20 Eligibility Eligibility Date Funding Source Not [facility] Eligible 12/27/22 Private Assessment and Plan Assessment & Plan (1) Physical exam: Code(s): Z00.00 - Encounter for general adult medical examination without abnormal findings Plan: Repeat in a year. (2) Mild recurrent major depression: Code(s): F33.0 - Major depressive disorder, recurrent, mild Plan: Continue sertraline. Orders: Orders Influenza [id number] Immunization Today Z23 - Encounter for immunization Lipid Panel Today E78.5 - Hyperlipidemia, unspecified Vitamin D 25-OH Total Today E55.9 - Vitamin D deficiency, unspecified Comprehensive [place]. Panel Fast Today Z00.00 - Encounter for general adult medical examination without abnormal findings Medications: Discontinued hydroxyzine HCl take 1-2 tablets at night Discontinued Reason: Patient Completed Course 10 mg PO BEDTIME PRN 14 tabs 0RF insomnia cholestyramine (with sugar) 4 gram administer w/meal; avoid other meds within 1hr before or 4-6hr after dose Discontinued Reason: Patient Completed Course 4 grams PO DAILY 30 days 378 grams 1RF loratadine-pseudoephedrine 5-120 mg ER (Loratadine-D) Discontinued Reason: Patient Completed Course 1 tab PO Q12H 60 tabs 2RF Coding Level of Care Code Est Pt Prev Care 40-64y(69896) Diagnoses Physical exam Z00.00 Mild recurrent major depression F33.0 Additional Codes GEETHA-7 Assessment Billing - GEETHA-7 Assessment Tool: GEETHA-7 Assessment 75131 ([id number]) Time Spent (min) 31
== END 2022-12-27 09:39 | disposition home or self-care (01) ==
PROVIDERS: Visit Provider Internal Medicine
DX: Z00.00 Encounter for general adult medical examination without abnormal findings (principal); F33.0 Major depressive disorder, recurrent, mild; Z23 Encounter for immunization
CPT/HCPCS: 90471; 90686; 99396

== ENCOUNTER 2023-09-06 09:30 | Outpatient (AMB) | payer OTHER, SELFPAY ==
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
[2023-09-06 09:37] VITALS: BMI 31.1
== END 2023-09-06 12:03 | disposition home or self-care (01) ==
PROVIDERS: PCP Internal Medicine; Visit Provider Physical Medicine & Rehabilitation
DX: M18.0 Bilateral primary osteoarthritis of first carpometacarpal joints (principal); R20.0 Anesthesia of skin
CPT/HCPCS: 99203

== ENCOUNTER 2023-09-06 09:30 | Outpatient (REF) | payer OTHER, SELFPAY ==
--- NOTE | ~2023-09-06 | XR_ITS ---
EXAMINATION: XR HAND, BILATERAL CLINICAL INFORMATION: Bilateral hand pain. COMPARISON: None. TECHNIQUE: 3 views of each hand. FINDINGS: No acute fracture or malalignment. Chronic-appearing deformity of the tuft of the left 4th distal phalanx. No periarticular osteopenia, erosions, or suspicious soft tissue calcifications. XR/XR hand LT min 3V IMPRESSION: No acute fracture or malalignment. No evidence of an inflammatory arthropathy.
--- NOTE | ~2023-09-06 | XR_ITS ---
EXAMINATION: XR HAND, BILATERAL CLINICAL INFORMATION: Bilateral hand pain. COMPARISON: None. TECHNIQUE: 3 views of each hand. FINDINGS: No acute fracture or malalignment. Chronic-appearing deformity of the tuft of the left 4th distal phalanx. No periarticular osteopenia, erosions, or suspicious soft tissue calcifications. XR/XR hand RT min 3V IMPRESSION: No acute fracture or malalignment. No evidence of an inflammatory arthropathy.
== END 2023-09-06 09:31 | disposition home or self-care (01) ==
LOC: HO.HOSX 09:30
PROVIDERS: PCP Internal Medicine; Visit Provider Physical Medicine & Rehabilitation
DX: M18.0 Bilateral primary osteoarthritis of first carpometacarpal joints (principal); R20.0 Anesthesia of skin; M79.641 Pain in right hand; M79.642 Pain in left hand
CPT/HCPCS: 73130; 99202

== ENCOUNTER 2023-09-21 13:12 | Outpatient (REF) | payer OTHER, SELFPAY ==
--- NOTE | 2023-09-21 13:15 | EMG_ITS ---
Chief complaint: Hand pain Reason for referral: Evaluate for Carpal Tunnel Syndrome Procedure done: Bilateral upper extremities NCS/EMG Precautions and/or limitations: None The limb temperature was monitored continuously and remained between 32-36 degrees C during the performance of the NCS. Nerve Conduction Studies Anti Sensory Summary Table ?Stim Site NR Onset (ms) Norm Onset (ms) Peak (ms) Norm Peak (ms) O-P Amp (?V) Norm O-P Amp Site1 Site2 Delta-0 (ms) Dist (cm) Anastacio (m/s) Norm Anastacio (m/s) Left Median Anti Sensory (2nd Digit) Wrist ? 2.3 3.1 <3.6 58.1 >10 Wrist 2nd Digit 2.3 14.0 61 Right Median Anti Sensory (2nd Digit) Wrist ? 2.6 3.3 <3.6 52.5 >10 Wrist 2nd Digit 2.6 14.0 54 Left Ulnar Anti Sensory (5th Digit) Wrist ? 2.2 2.7 <3.7 51.1 >15.0 Wrist 5th Digit 2.2 14.0 64 Right Ulnar Anti Sensory (5th Digit) Wrist ? 2.2 2.9 <3.7 18.8 >15.0 Wrist 5th Digit 2.2 14.0 64 Motor Summary Table ?Stim Site NR Onset (ms) Norm Onset (ms) O-P Amp (mV) Norm O-P Amp iAmp (mV) Amp (1st) (%) Site1 Site2 Delta-0 (ms) Dist (cm) Anastacio (m/s) Norm Anastacio (m/s) Left Median Motor (Abd Poll Brev) Wrist ? 2.9 <3.9 12.7 >4.5 15.6 100.0 Elbow Wrist 3.7 19.0 51 >45 Elbow ? 6.6 10.7 13.4 84.3 Right Median Motor (Abd Poll Brev) Wrist ? 3.0 <3.9 13.9 >4.5 16.7 100.0 Elbow Wrist 3.7 19.5 53 >45 Elbow ? 6.7 11.5 14.1 82.7 Left Ulnar Motor (Abd Dig Minimi) Wrist ? 2.8 <3.0 10.1 >5 11.8 100.0 B Elbow Wrist 2.7 17.0 63 >45 B Elbow ? 5.5 10.0 11.9 99.0 A Elbow B Elbow 1.4 10.0 71 >45 A Elbow ? 6.9 9.8 11.9 97.0 Right Ulnar Motor (Abd Dig Minimi) Wrist ? 2.7 <3.0 10.9 >5 12.4 100.0 B Elbow Wrist 3.0 18.0 60 >45 B Elbow ? 5.7 10.9 13.0 100.0 A Elbow B Elbow 1.1 10.0 91 >45 A Elbow ? 6.8 10.8 13.0 99.1 Comparison Summary Table ?Stim Site NR Peak (ms) Norm Peak (ms) P-T Amp (?V) Site1 Site2 Delta-P (ms) Norm Delta (ms) Right Median/Radial Dig I Comparison (Digit 1 - 10cm) Median ? 2.7 <2.9 51.7 Median Radial 0.5 Radial ? 2.2 <2.8 13.1 EMG ?Side Muscle Nerve Root Ins Act Fibs Psw Amp Dur Poly Recrt Int Pat Comment Right 1stDorInt Ulnar C8-T1 Nml Nml Nml Nml Nml 0 Nml Complete Right FlexCarRad Median C6-7 Nml Nml Nml Nml Nml 0 Nml Complete Right Biceps Musculocut C5-6 Nml Nml Nml Nml Nml 0 Nml Complete Right Triceps Radial C6-7-8 Nml Nml Nml Nml Nml 0 Nml Complete Right Deltoid Axillary C5-6 Nml Nml Nml Nml Nml 0 Nml Complete Left 1stDorInt Ulnar C8-T1 Nml Nml Nml Nml Nml 0 Nml Complete Left FlexCarRad Median C6-7 Nml Nml Nml Nml Nml 0 Nml Complete Left Biceps Musculocut C5-6 Nml Nml Nml Nml Nml 0 Nml Complete Left Triceps Radial C6-7-8 Nml Nml Nml Nml Nml 0 Nml Complete Left Deltoid Axillary C5-6 Nml Nml Nml Nml Nml 0 Nml Complete FINDINGS: All motor and sensory nerves tested showed normal latencies, amplitudes and conduction velocities. Concentric needle EMG was performed in selected muscles of the upper extremity. Study did not reveal signs of electric abnormalities as shown in the table above. IMPRESSION: 1. This is a normal study. 2. There is no electrodiagnostic evidence for median neuropathy, ulnar neuropathy, brachial plexopathy, or cervical radiculopathy. Thank you for your kind referral. Sophia Villalobos MD, GARRICK Board Certified, [place] [employer] and Rehabilitation (ABPMR) Board Certified, [place] [employer] Electrodiagnostic Medicine (ABEM) CODIN 40745 x 2 MTDD
== END 2023-09-21 13:13 | disposition home or self-care (01) ==
LOC: HO.NEURO 13:12
PROVIDERS: PCP Internal Medicine; Visit Provider Physical Medicine & Rehabilitation
DX: R20.0 Anesthesia of skin (principal); M18.0 Bilateral primary osteoarthritis of first carpometacarpal joints
CPT/HCPCS: 95886; 95911

== ENCOUNTER → 2023-09-21 13:15 | Outpatient (BNV) | payer OTHER, SELFPAY | PROVIDERS: PCP Internal Medicine; Visit Provider Physical Medicine & Rehabilitation | DX: M79.641 Pain in right hand (principal); M79.642 Pain in left hand | CPT/HCPCS: 95886; 95911 ==

== ENCOUNTER 2024-01-01 08:50 | Outpatient (AMB) | payer OTHER, SELFPAY ==
--- NOTE | 2024-01-01 08:58 | MHC.PC.OV ---
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: No Accompanied by: Self / Same As Patient Allergies No Known Allergies Allergy (Verified 01/01/24 09:14) Medication List - Last Reconciled 01/01/24 by Rosmrey Rivas MD atorvastatin 40 mg PO DAILY azelastine intranasal cetirizine (All Day Allergy (cetirizine)) 10 mg PO DAILY PRN 90 days cholecalciferol (vitamin D3) 50 mcg PO DAILY escitalopram oxalate 10 mg PO DAILY fenofibrate 54 mg PO DAILY fluticasone propionate 50 mcg/actuation (Flonase Allergy Relief) 1 spray intranasal DAILY 30 days ibuprofen 800 mg PO TID PRN 30 days leg brace (Knee Support Brace) genumed knee support [id number] pantoprazole 40 mg PO DAILY 90 days sertraline 200 mg PO QPM Tobacco use date assessed: 01/01/24 Dental Screening Dental Screen Date: 01/01/24 Did you have a dental visit in the last 12 months?: No Did you have a dental problem in the last 6 months where you did not have access to dental care?: No Was dental information given to patient?: Patient has dentist HPI HPI Comments History of Present Illness Details This is a 43-year-old female with mild recurrent major depression that comes for her physical exam. Depression is follow by Psychiatry. Mammogram done over a year ago and I will order another mammogram. Pap smear done recently and was normal. Has not had a colonoscopy and will be refer through open access. Complains of chronic diarrhea and has tried cholestyramine with no improvement. Would like to be referred to Gastroenterology. 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 Chronic pain syndrome Spondylosis without myelopathy or radiculopathy, lumbar region Unspecified inflammatory spondylopathy, site unspecified Surgical History History of ankle surgery History of sinus surgery History of cholecystectomy History of tubal ligation Family History Father Diabetes Hypertension Stroke Mother Hypertension Social History Housing: House Alcohol intake: current Alcohol intake frequency: holidays/special occasions only Alcohol type: wine and hard liquor Comment: left lower leg brace surgery as a child Patient Tobacco Use Status: Never used Tobacco e-Cigarette/Vaping Use: Never Used Second Hand Smoke Exposure: No service: No Current occupational status: unemployed Current occupational exposures/hazards: No Cognitive needs: No Hearing needs: No Vision needs: No Female Reproductive History Menstrual Age of Menarche: 10 Questionnaire PHQ-9 Over the last 2 weeks, how often have you been bothered by any of the following problems? 1. Little interest or pleasure in doing things: not at all 2. Feeling down, depressed, or hopeless: not at all 3. Trouble falling or staying asleep, or sleeping too much: more than half the days 4. Feeling tired or having little energy: several days 5. Poor appetite or overeating: not at all 6. Feeling bad about yourself - or that you are a failure or have let yourself or your family down: not at all 7. Trouble concentrating on things, such as reading the newspaper or watching television: not at all 8. Moving or speaking so slowly that other people could have noticed. Or the opposite - being so fidgety or restless that you have been moving around a lot more than usual: not at all 9. Thoughts that you would be better off or of hurting yourself in some way: not at all Total score: 3 Depression Screening Interpretation: Positive Depression Screening Follow-up: Existing condition, In treatment, Community Mental Health Worker F/U and Follow-up Visit Requested Depression Screening Done: Yes 84787 - PHQ-9 Billing: Yes Source: Developed by Drs. uTng Soriano, Debi Aguillon, Amari Rivas and colleagues, with an educational amira from [employer]. Thrive Questionnaire Date Thrive assessed: 12/26/23 I am a: Patient What is your living situation today?: I have a steady place to live Within the past 12 months, did the food you bought not last and you didn't have the money to get more?: Never true Within the past 12 months, did you worry whether your food would run out before you got money to buy more?: Never true Do you have trouble paying for medicines?: No Do you have trouble getting transportation to medical appointments?: No Do you have trouble paying your heating and electricity bill?: No Do you have trouble taking care of your child, family member or friend?: No Do you have trouble with day-to-day activities such as bathing, preparing meals, shopping, managing finances, etc.?: No Are you currently unemployed and looking for a job?: No Are you interested in more education?: No Please select the resources that you would like help with: None Currently or been in a relationship where the following occur: I choose not to answer THRIVE Score: 0 AUDIT C Alcohol Use Questionnaire (AUDIT-C) 1. How often do you have a drink containing alcohol?: Monthly or less 2. How many drinks containing alcohol do you have on a typical day when you are drinking?: 1 or 2 3. How often do you have six or more drinks on one occasion?: Less than monthly Total Score: 2 Score Reviewed/Action Taken: No GEETHA-7 AMB Questionnaire GEETHA-7 Date GEETHA - 7 assessed: 01/01/24 Feeling nervous, anxious, or on edge: 1 = Several days Not being able to stop or control worryin = Not at all Worrying too much about different things: 0 = Not at all Trouble relaxin = Not at all Being so restless that it is hard to sit still: 0 = Not at all Becoming easily annoyed or irritable: 0 = Not at all Feeling afraid as if something awful might happen: 0 = Not at all Total GEETHA-7 score (0-4 normal; 5-9 mild; 10-14 moderate; 15-21 severe): 1 Source: Developed by Drs. Tung Soriano, Debi Aguillon, Amari Rivas and colleagues, with an educational amira from [employer]. GEETHA-7 Assessment Billing GEETHA-7 Assessment Tool: GEETHA-7 Assessment 58473 Review of Systems GI Reports diarrhea Physical exam (Primary Care) Vital Signs: Last Vital Signs BP 122/70 01/01/24 08:59 BMI result Body Mass Index 32.1 BMI Assessment/Plan discussion: High BMI High, discussed plan: lifestyle, weight reduction, dietary and physical activity Tobacco/Smoking Status: Tobacco use Status Tobacco use date assessed 01/01/24 01/01/24 09:05 Patient Tobacco Use Status Never used Tobacco 01/01/24 09:05 e-Cigarette/Vaping Use Never Used 01/01/24 09:05 PHQ-9: PHQ-9 Score PHQ-9: Total score 3 01/01/24 09:28 Depression Screening Interpretation: Positive Depression Screening Follow-up: Existing condition, In treatment, Community Mental Health Worker F/U and Follow-up Visit Requested Thrive Assessment: Date of Thrive Assessment Date Thrive assessed 12/26/23 01/01/24 09:05 Currently or been in a relationship where the following occur: I choose not to answer Office Procedures Flu Questionnaire Does the patient have a severe egg allergy?: No Does the patient have severe life threatening allergies?: No Does the patient have a fever or illness today?: No Has the patient ever had Guillain-Hitchins Syndrome?: No Has the patient ever had any past reaction to a flu shot?: No Immunizations Fluarix Triv 2404-2966 (PF) 45 mcg (15 mcg x 3)/0.5 mL IM syringe Performing Provider: Rosmery Rivas MD [place] [facility] Administered by: JIMMY Sandhu on 01/01/24 09:26 Dose Route Admin Location Dispensed Lot Number Expiration Date [facility] 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 0.5 mL IM Left Deltoid 0.5 mL [id number] 08/18/24 15279-824-20 [employer]INE VIS Given Date VIS Provided VIS Publication Date 01/01/24 Single Vaccine 20 Eligibility Eligibility Date Funding Source Not [facility] Eligible 01/01/24 Private Coding Level of Care Code Est Pt Level 3 (69751) Est Pt Prev Care 18-39y(61160) Diagnoses Physical exam Z00.00 Mild recurrent major depression F33.0 Chronic diarrhea K52.9 Additional Codes GEETHA-7 Assessment Billing - GEETHA-7 Assessment Tool: GEETHA-7 Assessment 10177 ([id number]) PHQ-9 - 92915 - PHQ-9 Billing: Yes ([id number]) Time Spent (min) 35 Assessment & Plan Assessment & Plan (1) Physical exam: Code(s): Z00.00 - Encounter for general adult medical examination without abnormal findings Category: Medical Plan: Repeat in a year. (2) Mild recurrent major depression: Code(s): F33.0 - Major depressive disorder, recurrent, mild Category: Medical Plan: Continue sertraline. Follow-up with psychiatry. (3) Chronic diarrhea: Code(s): K52.9 - Noninfective gastroenteritis and colitis, unspecified Category: Medical Plan: Referred to Gastroenterology. Stool samples ordered. Orders: Orders Influenza [id number] Immunization Today Z23 - Encounter for immunization MM tomosynthesis screening BI Today Z12.31 - Encounter for screening mammogram for malignant neoplasm of breast Leukocytes Stool Qualitative Today K52.9 - Noninfective gastroenteritis and colitis, unspecified Vitamin D 25-OH Total Today E55.9 - Vitamin D deficiency, unspecified H pylori Ag Stool Today R19.7 - Diarrhea, unspecified Comprehensive [place]. Panel Fast Today Z00.00 - Encounter for general adult medical examination without abnormal findings Thyroid Stimulating Hormone Today K52.9 - Noninfective gastroenteritis and colitis, unspecified Complete Blood Count Auto Diff Today D64.9 - Anemia, unspecified Lipid Panel Today E78.5 - Hyperlipidemia, unspecified CDiff Gene PCR Today K52.9 - Noninfective gastroenteritis and colitis, unspecified Referrals Gastroenterology Referral K52.9 - Noninfective gastroenteritis and colitis, unspecified, Z12.11 - Encounter for screening for malignant neoplasm of colon
[2024-01-01 08:59] VITALS: BP 122/70; BMI 32.1
== END 2024-01-01 09:29 | disposition home or self-care (01) ==
PROVIDERS: PCP Internal Medicine; Visit Provider Internal Medicine
DX: Z00.00 Encounter for general adult medical examination without abnormal findings (principal); F33.0 Major depressive disorder, recurrent, mild; K52.9 Noninfective gastroenteritis and colitis, unspecified

== ENCOUNTER → 2024-01-01 08:50 | Outpatient (BNVA) | payer OTHER, SELFPAY | PROVIDERS: PCP Internal Medicine; Visit Provider Internal Medicine | DX: Z00.01 Encounter for general adult medical examination with abnormal findings (principal); K52.9 Noninfective gastroenteritis and colitis, unspecified; F33.0 Major depressive disorder, recurrent, mild | CPT/HCPCS: 90471; 90656; 96127; 99212; 99396 ==

== ENCOUNTER 2024-01-12 09:33 | Emergency (ER) | payer OTHER, SELFPAY ==
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
[2024-01-12 09:42] VITALS: BP 160/92; PULSE 90; O2SAT 98
[2024-01-12 09:44] VITALS: BP 143/79; PULSE 86; RESP 18; TEMP 36.9; O2SAT 96; BMI 32.5
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
[2024-01-12] MEDS: Cyclobenzaprine HCl 10 MG TABLET PO (10:24)
[2024-01-12] MEDS: Acetaminophen 325 MG TABLET 975 MG PO (10:24)
[2024-01-12 10:37] VITALS: BP 136/72; PULSE 86; RESP 16; TEMP 37.3; O2SAT 97
[2024-01-12 11:39] VITALS: BP 136/72; PULSE 86; RESP 16; TEMP 37.3; O2SAT 97
== END 2024-01-12 11:43 | disposition home or self-care (01) ==
PROVIDERS: Emergency Provider Emergency Medicine; PCP Internal Medicine
DX: Z04.1 Encounter for examination and observation following transport accident (principal); M79.602 Pain in left arm; G89.4 Chronic pain syndrome; Z79.891 Long term (current) use of opiate analgesic
CPT/HCPCS: 70450; 71046; 72125; 73030; 99284

== ENCOUNTER 2025-01-01 08:49 | Outpatient (AMB) | payer MEDICARE, MEDICAID, SELFPAY ==
[2025-01-01 09:10] VITALS: BP 110/70; PULSE 83; RESP 18; O2SAT 99; BMI 31.5
--- NOTE | 2025-01-01 09:10 | MHC.PC.OV ---
Vital Signs 01/01/25 09:10 Height 5 ft 4 in Weight 183 lb 6 oz BMI 31.5 BP 110/70 Blood Pressure Location Lt brachial Position Sitting Respiration 18 Pulse 83 Pulse Source Pulse Oximeter Temp Source Temporal Artery Scan Pulse Oximetry (%) 99 Oxygen Delivery Method Room Air Intake Visit Reasons: Annual Exam [employer] Consultant Required: No Accompanied by: Self / Same As Patient Allergies No Known Allergies Allergy (Verified 01/01/25 09:21) Medication List - Last Reconciled 01/01/25 by Rosmery Rivas MD aripiprazole (Abilify) 5 mg PO BEDTIME atorvastatin 40 mg PO DAILY azelastine intranasal bupropion HCl XL (Wellbutrin XL) 150 mg PO QAM buspirone 10 mg PO BID cetirizine (All Day Allergy (cetirizine)) 10 mg PO DAILY PRN 90 days cholecalciferol (vitamin D3) 50 mcg PO DAILY cyclobenzaprine 5 mg PO Q8H PRN fluticasone propionate 50 mcg/actuation (Flonase Allergy Relief) 1 spray intranasal DAILY 30 days gabapentin 300 mg PO TID guaifenesin ER (Mucinex) 600 mg PO BID 5 days hydroxyzine HCl 50 mg PO BEDTIME ibuprofen 800 mg PO TID PRN 30 days leg brace (Knee Support Brace) genumed knee support [id number] lidocaine 5% (Lidoderm) 1 patch topical DAILY pantoprazole 40 mg PO DAILY 90 days sertraline 100 mg PO QPM Tobacco use date assessed: 01/01/25 Dental Screening Dental Screen Date: 01/01/25 Did you have a dental visit in the last 12 months?: Yes Did you have a dental problem in the last 6 months where you did not have access to dental care?: No Was dental information given to patient?: Patient has dentist HPI HPI Comments History of Present Illness Details The patient is a 44-year-old female presenting for her physical exam. The patient has a history of depression and anxiety and is followed by behavioral health for medication management. Her psychiatric medications discussed include buspirone, bupropion 150 mg, Abilify, sertraline 100 mg, gabapentin 300mg, and hydroxyzine. For mixed hyperlipidemia, she takes atorvastatin 40 mg. She was taking fenofibrate for high triglycerides, but this will be discontinued pending labs, as her triglyceride levels have not been above 500 mg/dL. The patient has a surgical history of ankle surgery, sinus surgery, cholecystectomy, and tubal ligation. Her mother is and had hypertension, and her father is alive with a history of diabetes, hypertension, and stroke. For health maintenance, her last Papanicolaou test was in 2021 and is up to date. She has not undergone a colonoscopy. She reports no known drug allergies, no allergies to eggs, and no prior adverse reactions to the influenza vaccine. The patient was screened for and will receive an influenza vaccine today. A mammogram was ordered for breast cancer screening. A Cologuard test will be sent to the patient's home for colon cancer screening. [facility] Medical History (Updated 01/01/25 @ 11:43 by Rosmery Rivas MD) Physical exam Knee effusion Screening for hypothyroidism Diarrhea Menometrorrhagia Hx of ovarian cyst Cervical cancer screening Hand pain Screen for colon cancer Allergic rhinitis Iron deficiency anemia due to chronic blood loss Mixed hyperlipidemia Arthritis Hypercholesteremia skilled nursing (current) use of opiate analgesic Chronic pain syndrome Spondylosis without myelopathy or radiculopathy, lumbar region Unspecified inflammatory spondylopathy, site unspecified Surgical History History of ankle surgery History of sinus surgery History of cholecystectomy History of tubal ligation Family History Father Diabetes Hypertension Stroke Mother Hypertension Social History Housing: House Alcohol intake: current Alcohol intake frequency: holidays/special occasions only Alcohol type: wine and hard liquor Comment: left lower leg brace surgery as a child Patient Tobacco Use Status: Never used Tobacco e-Cigarette/Vaping Use: Never Used Second Hand Smoke Exposure: No service: No Current occupational status: unemployed Current occupational exposures/hazards: No Cognitive needs: No Hearing needs: No Vision needs: No Female Reproductive History Menstrual Age of Menarche: 10 Questionnaire PHQ-9 Over the last 2 weeks, how often have you been bothered by any of the following problems? 1. Little interest or pleasure in doing things: not at all 2. Feeling down, depressed, or hopeless: not at all 3. Trouble falling or staying asleep, or sleeping too much: several days 4. Feeling tired or having little energy: not at all 5. Poor appetite or overeating: not at all 6. Feeling bad about yourself - or that you are a failure or have let yourself or your family down: not at all 7. Trouble concentrating on things, such as reading the newspaper or watching television: not at all 8. Moving or speaking so slowly that other people could have noticed. Or the opposite - being so fidgety or restless that you have been moving around a lot more than usual: not at all 9. Thoughts that you would be better off or of hurting yourself in some way: not at all Total score: 1 Depression Screening Interpretation: Negative Depression Screening Done: Yes 12623 - PHQ-9 Billing: Yes Source: Developed by Drs. Tung Soriano, Debi Aguillon, Amari Rivas and colleagues, with an educational amira from [employer]. Thrive Questionnaire Date Thrive assessed: 12/25/24 I am a: Patient What is your living situation today?: I have a steady place to live Within the past 12 months, did the food you bought not last and you didn't have the money to get more?: Never true Within the past 12 months, did you worry whether your food would run out before you got money to buy more?: Never true Do you have trouble paying for medicines?: No Do you have trouble getting transportation to medical appointments?: No Do you have trouble paying your heating and electricity bill?: No Do you have trouble taking care of your child, family member or friend?: No Do you have trouble with day-to-day activities such as bathing, preparing meals, shopping, managing finances, etc.?: No Are you currently unemployed and looking for a job?: No Are you interested in more education?: No Please select the resources that you would like help with: None Currently or been in a relationship where the following occur: No concerns reported THRIVE Score: 0 AUDIT C Alcohol Use Questionnaire (AUDIT-C) 1. How often do you have a drink containing alcohol?: Never 3. How often do you have six or more drinks on one occasion?: Never Total Score: 0 Score Reviewed/Action Taken: No GEETHA-7 AMB Questionnaire GEETHA-7 Date GEETHA - 7 assessed: 01/01/25 Feeling nervous, anxious, or on edge: 2 = More than half the days Not being able to stop or control worryin = Not at all Worrying too much about different things: 0 = Not at all Trouble relaxin = Not at all Being so restless that it is hard to sit still: 0 = Not at all Becoming easily annoyed or irritable: 3 = Nearly every day Feeling afraid as if something awful might happen: 0 = Not at all Total GEETHA-7 score (0-4 normal; 5-9 mild; 10-14 moderate; 15-21 severe): 5 Source: Developed by Drs. Tung Soriano, Debi Aguillon, Amari Rivas and colleagues, with an educational amira from [employer]. GEETHA-7 Assessment Billing GEETHA-7 Assessment Tool: GEETHA-7 Assessment 05053 Review of Systems Const All systems reviewed & are unremarkable except as noted in HPI and below Card Denies chest pain at rest, Denies chest pain with activity, Denies edema, Denies irregular heart rhythm, Denies claudication, Denies dyspnea, Denies dyspnea on exertion, Denies orthopnea, Denies paroxysmal nocturnal dyspnea and Denies slow heart rate Resp Denies cough, Denies dyspnea and Denies dyspnea on exertion GI Denies abdominal pain, Denies change in bowel habits, Denies excessive flatus, Denies nausea and Denies vomiting Physical exam (Primary Care) Vital Signs: Last Vital Signs Pulse 83 01/01/25 09:10 Resp 18 01/01/25 09:10 BP 110/70 01/01/25 09:10 Pulse Ox 99 01/01/25 09:10 Oxygen Delivery Method Room Air 01/01/25 09:10 BMI result Body Mass Index 31.5 BMI Assessment/Plan discussion: High BMI High, discussed plan: lifestyle, weight reduction, dietary and physical activity Tobacco/Smoking Status: Tobacco use Status Tobacco use date assessed 01/01/25 01/01/25 09:17 Patient Tobacco Use Status Never used Tobacco 01/01/25 09:17 e-Cigarette/Vaping Use Never Used 01/01/25 09:17 PHQ-9: PHQ-9 Score PHQ-9: Total score 1 01/01/25 09:31 Depression Screening Interpretation: Negative Thrive Assessment: Date of Thrive Assessment Date Thrive assessed 12/25/24 01/01/25 09:17 Currently or been in a relationship where the following occur: No concerns reported [facility] Head: Yes normal to inspection, Yes normocephalic and Yes atraumatic Ears: external ears normal Eyes General: appearance normal, both eyes and all related structures Eyelids: Yes eyelids normal Conjunctivae: conjunctivae normal Neck Neck: Yes normal visual inspection and Yes supple Resp Effort & Inspection: normal respiratory effort Auscultation: clear to auscultation bilaterally Cardio Jugular venous distension: no JVD Rate: regular rate Rhythm: regular rhythm Heart sounds: S1 normal heart sound present and S2 normal heart sound present GI Inspection: Yes normal to inspection Palpation (GI): Soft to palpation and nontender Auscultation: normal bowel sounds Skin General skin exam: no rashes or lesions noted Neuro General: no focal motor deficits Extrem General: Yes full ROM Psych Appearance: grossly normal Office Procedures Flu Questionnaire Does the patient have a severe egg allergy?: No Does the patient have severe life threatening allergies?: No Does the patient have a fever or illness today?: No Has the patient ever had Guillain-Stafford Syndrome?: No Has the patient ever had any past reaction to a flu shot?: No Immunizations Fluarix [id number] (PF) 45 mcg (15 mcg x 3)/0.5 mL IM syringe Performing Provider: Rosmery Rivas MD [facility] Administered by: Guillermina Heart RN on 01/01/25 09:29 Dose Route Admin Location Dispensed Lot Number Expiration Date [facility] [place] [employer] Agent 0.5 mL IM Left Deltoid 0.5 mL [id number] 08/18/24 91412-296-59 [employer] VIS Given Date VIS Provided VIS Publication Date 01/01/25 Single Vaccine 24 Eligibility Eligibility Date Funding Source Not [facility] Eligible 01/01/25 Private Coding Level of Care Code Est Pt Prev Care 40-64y(30726) Diagnoses Physical exam Z00.00 Mild recurrent major depression F33.0 Additional Codes GEETHA-7 Assessment Billing - GEETHA-7 Assessment Tool: GEETHA-7 Assessment 27308 ([id number]) PHQ-9 - 47498 - PHQ-9 Billing: Yes ([id number]) Time Spent (min) 30 Assessment & Plan Assessment & Plan (1) Physical exam: Code(s): Z00.00 - Encounter for general adult medical examination without abnormal findings Category: Medical (2) Mild recurrent major depression: Code(s): F33.0 - Major depressive disorder, recurrent, mild Category: Medical Plan Plan 1. Physical exam Repeat in a year. Mammogram ordered. Cologuard ordered. 2. Depression And Anxiety The patient will continue management with her behavioral health provider. Medication regimen including buspirone, bupropion, and others was reviewed. It was noted that hydroxyzine can be used for anxiety and sleep, and if taken, she should not take cetirizine concurrently. Orders: Orders Influenza [id number] Immunization Today Z23 - Encounter for immunization MM tomosynthesis screening BI Today Z12.31 - Encounter for screening mammogram for malignant neoplasm of breast Lipid Panel Today E78.5 - Hyperlipidemia, unspecified Vitamin D 25-OH Total Today E55.9 - Vitamin D deficiency, unspecified Referrals Cologuard Test Z12.11 - Encounter for screening for malignant neoplasm of colon, Z12.12 - Encounter for screening for malignant neoplasm of rectum Medications: Changed From sertraline 200 mg PO QPM To sertraline 100 mg PO QPM Discontinued fenofibrate Discontinued Reason: Order 54 mg PO DAILY 90 caps 1RF escitalopram oxalate Discontinued Reason: Patient Completed Course 10 mg PO DAILY 30 tabs 2RF F32.A - Depression, unspecified, F41.9 - Anxiety disorder, unspecified cetirizine (All Day Allergy (cetirizine)) Discontinued Reason: Patient Completed Course 10 mg PO DAILY 90 days PRN 90 tabs 2RF allergy symptoms
== END 2025-01-01 09:40 | disposition home or self-care (01) ==
LOC: HO.HMCH 08:50
PROVIDERS: PCP Internal Medicine; Visit Provider Internal Medicine
DX: Z00.00 Encounter for general adult medical examination without abnormal findings (principal); F33.0 Major depressive disorder, recurrent, mild; Z23 Encounter for immunization

== ENCOUNTER → 2025-01-01 08:49 | Outpatient (BNVA) | payer MEDICARE, MEDICAID, SELFPAY | PROVIDERS: PCP Internal Medicine; Visit Provider Internal Medicine | DX: Z00.00 Encounter for general adult medical examination without abnormal findings (principal); F33.0 Major depressive disorder, recurrent, mild; F41.9 Anxiety disorder, unspecified; E78.2 Mixed hyperlipidemia; Z23 Encounter for immunization | CPT/HCPCS: 90471; 90656; 96127; 99396 ==

== ENCOUNTER 2025-01-05 07:37 | Outpatient (REF) | payer MEDICARE, MEDICAID, SELFPAY ==
[2025-01-05 08:48] LABS: Cholesterol 227 mg/dL (<200); HDL Cholesterol 35 mg/dL (>40); Triglycerides 430 mg/dL (<150)
== END 2025-01-05 07:38 | disposition home or self-care (01) ==
LOC: HO.LAB 07:37
PROVIDERS: PCP Internal Medicine; Visit Provider Internal Medicine
DX: E78.5 Hyperlipidemia, unspecified (principal); E55.9 Vitamin D deficiency, unspecified; Z13.21 Encounter for screening for nutritional disorder
CPT/HCPCS: 36415; 80061; 82306